=== PATIENT | female | born 1965 | race Caucasian/White ===

== ENCOUNTER 2016-09-05 23:31 | Emergency (ER) | payer SELFPAY ==
[2016-09-05 23:45] VITALS: BP 139/82
== END 2016-09-06 04:19 | disposition left against medical advice (07) ==
LOC: ED 23:31
DX: R07.9 Chest pain, unspecified (principal); R05 Cough; Z53.21 Procedure and treatment not carried out due to patient leaving prior to being seen by health care provider
CPT/HCPCS: 93005; 93010

== ENCOUNTER 2019-08-13 15:22 | Emergency (ER) | payer SELFPAY ==
[2019-08-13 15:44] VITALS: BP 136/83
--- NOTE | 2019-08-13 15:44 | Event Note ---
ED Screening Note ED Screening Note: bilateral eye irritation that began a few days ago +drainage states her had it last week denies anything getting into the eye no vision changes no contact lens use states that she has had vaginal discharge that began 1 day ago +urinary frequency no dysuria no vomiting no fever no abd pain PMHx none no allergies to meds This initial assessment/diagnostic orders/clinical plan/treatment(s) is/are subject to change based on patients health status, clinical progression and re- assessment by fellow clinical providers in the ED. Further treatment and workup at subsequent clinical providers discretion. Patient/guardian urged not to elope from the ED as their condition may be serious if not clinically assessed and managed. Initial orders include: UA
[2019-08-13 18:12] LABS: Bilirubin,Urine NEG (Negative); Blood,Urine NEG (Negative); Color,Urine Yellow (Yellow); Mucus,Urine FEW /HPF; Protein,Urine <15 mg/dL mg/dL (Negative); WBC,Urine < 1.0 /HPF (0.0-6.0)
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
== END 2019-08-13 20:30 | disposition home or self-care (01) ==
LOC: ED 15:22
DX: H10.33 Unspecified acute conjunctivitis, bilateral (principal); Z79.899 Other long term (current) drug therapy
CPT/HCPCS: 81001